=== PATIENT | male | born 1980 | race Caucasian/White ===

== ENCOUNTER 2016-08-20 13:04 | Emergency (ER) | payer MEDICAID ==
[~2016-08-20] VITALS: Ht 162.6 cm; Wt 68.0 kg
--- NOTE | 2016-08-20 13:04 | NUR ---
Patient BIBA and taken to bed 02 via gurney per EMS.
[2016-08-20 13:11] VITALS: BP 132/96
--- NOTE | 2016-08-20 13:12 | NUR ---
BIB EMS, SILK SCREEN PRINTER MACHINE STATES PT. ATE CUPCAKE WITH WRAPPER APPROX. 1 HR AGO, UNABLE TO OBTAIN PULSE OX PT. HAS HX OF MR AND VERY AGITATED; DENIES N/V/D; SKIN IS PINK/WARM/DRY; AAOX4 WITH EVEN AND STEADY GAIT; LUNGS CLEAR BL; HR EVEN AND REGULAR; PT DENIES ANY FEVER, CP, SOB, OR COUGH AT THIS TIME; PATIENT STATES PAIN OF 0/10 AT THIS TIME; VSS; PATIENT POSITIONED FOR COMFORT; HOB ELEVATED; BEDRAILS UP X2; BED DOWN. ER MD MADE AWARE OF PT STATUS.
[2016-08-20 13:24] VITALS: BP 132/96
--- NOTE | 2016-08-20 13:24 | NUR ---
Patient discharged with v/s stable. Written and verbal after care instructions given and explained TO SUSTAINABLE DESIGN CONSULTANT MONICO; MANAGER DATA verbalized understanding. Ambulatory with steady gait. All questions addressed prior to discharge. Advised to follow up with PMD; Patient discharged with v/s stable. Written and verbal after care instructions given and explained. SUSTAINABLE DESIGN CONSULTANT MONICO verbalized understanding. Ambulatory with steady gait. All questions addressed prior to discharge. Advised to follow up with PMD.
== END 2016-08-20 13:50 | disposition home or self-care (01) ==
LOC: MED 13:50
DX: T18.9XXA Foreign body of alimentary tract, part unspecified, initial encounter (principal); X58.XXXA Exposure to other specified factors, initial encounter; Y93.89 Activity, other specified; Y92.89 Other specified places as the place of occurrence of the external cause; Y99.8 Other external cause status

== ENCOUNTER 2023-11-12 14:39 | Inpatient (IN) | payer MEDICAID ==
[~2023-11-12] VITALS: Ht 157.5 cm; Wt 72.6 kg
[2023-11-12 15:34] VITALS: BP 108/85; PULSE 76; RESP 15; TEMP 98.3; O2SAT 96
[2023-11-12 16:37] LABS: BASOPHILS # (AUTO) 0.1 K/uL (0.00-0.22); BASOPHILS % (AUTO) 0.8 % (0.0-2.0); EOSINOPHILS # (AUTO) 0.1 K/uL (0-0.4); EOSINOPHILS % (AUTO) 0.6 % (0.0-4.0); HEMOGLOBIN 14.9 g/dL (12.0-18.0); LYMPHOCYTES # (AUTO) 2.1 K/uL (2.0-11.5); LYMPHOCYTES % (AUTO) 25.6 % (20.5-51.1); MEAN CORPUSCULAR HEMOGLOBIN 32 pg (27-31); MEAN CORPUSCULAR HGB CONC 36 g/dL (33-37); MEAN CORPUSCULAR VOLUME 89.3 fL (80-94); MONOCYTES # (AUTO) 0.7 K/uL (0.8-1.0); MONOCYTES % (AUTO) 9.1 % (1.7-9.3); NEUTROPHILS # (AUTO) 5.2 K/uL (1.8-7.7); NEUTROPHILS % (AUTO) 63.9 % (42.2-75.2); PLATELET COUNT (AUTO) 216 K/uL (140-450); RED CELL DISTRIBUTION WIDTH 13.6 % (11.6-13.7); WHITE BLOOD COUNT (AUTO) 8.1 K/uL (4.8-10.8)
[2023-11-12 16:56] LABS: ALBUMIN 3.5 g/dL (3.4-5.0); ANION GAP 11.5 (8-16); CALCIUM 9.1 mg/dL (8.5-10.1); CARBON DIOXIDE 27.1 mmol/L (21-32); CREATININE 0.7 mg/dL (0.6-1.3); POTASSIUM 4.6 mmol/L (3.5-5.1); TOTAL BILIRUBIN 0.3 mg/dL (0.0-1.0); TOTAL PROTEIN, SERUM 7.5 g/dL (6.4-8.2)
[2023-11-12 17:31] VITALS: O2SAT 96
[2023-11-12] MEDS ORDERED: [UNRECOGNIZED DRUG - CODE] PO (17:31)
[2023-11-12] MEDS ORDERED: CHLO473M PO (17:31)
[2023-11-12] MEDS ORDERED: ASCO500T95 PO (17:31)
[2023-11-12] MEDS ORDERED: DIVA500T1 PO (17:31)
[2023-11-12] MEDS ORDERED: DIVA250T PO (17:31)
[2023-11-12] MEDS ORDERED: [UNRECOGNIZED DRUG - CODE] DT (17:31)
[2023-11-12] MEDS ORDERED: ONDANSETRON 4 MG/2 ML VIAL IVP PRN (19:55)
[2023-11-12] MEDS ORDERED: HYDROcodone/APAP 5/325 MG 1 TAB TAB PO PRN (19:55)
[2023-11-12 20:24] VITALS: BP 138/86; PULSE 87; RESP 17; RESP 19; TEMP 97.2; O2SAT 98; O2SAT 99
[2023-11-12] MEDS: LORazepam 2 MG/ML VIAL IVP PRN (21:49)
[2023-11-12] MEDS: DIVALPROEX 500 MG TABER PO SCH (21:49)
[2023-11-13 04:00] VITALS: BP 98/65; PULSE 77; RESP 18; TEMP 97; O2SAT 98
[2023-11-13 08:00] VITALS: BP 121/79; PULSE 65; RESP 17; TEMP 97.9; O2SAT 100
[2023-11-13] MEDS ORDERED: NON-FORMULARY ITEM (Cholecalciferol (Vitamin D3) (Vitamin D3) 1 TAB) PO SCH (09:00)
[2023-11-13] MEDS ORDERED: FLUORIDE SODIUM PO SCH (09:00)
[2023-11-13] MEDS ORDERED: SODIUM CHLORIDE 3% 4 ML SOL INH SCH (09:00)
[2023-11-13] MEDS: ASCORBIC ACID 500 MG TAB PO SCH (09:00)
[2023-11-13] MEDS ORDERED: NON-FORMULARY ITEM (Divalproex Sodium* (Depakote Er (Extended Release)*) 250 MG) PO SCH (09:00)
[2023-11-13 16:00] VITALS: BP 113/90; PULSE 96; RESP 18; TEMP 98.1; O2SAT 98
[2023-11-13 20:00] VITALS: BP 126/81; PULSE 103; RESP 18; TEMP 96.8; O2SAT 96
[2023-11-13] MEDS: CHLORHEXIDINE GLUCONATE 0.12% 473 ML LIQ MM SCH (21:00)
[2023-11-14 04:00] VITALS: BP 121/92; PULSE 94; RESP 19; TEMP 96.5; O2SAT 96
[2023-11-14] MEDS: LORazepam 2 MG/ML VIAL ONE (07:43)
[2023-11-14 08:00] VITALS: PULSE 99; RESP 18; O2SAT 96; O2SAT 98
[2023-11-14] MEDS: CHOLECALCIFEROL 1,000 IU TAB PO SCH (13:31)
[2023-11-14] MEDS: DIVALPROEX 250 MG TABEC PO SCH (13:31)
[2023-11-14 16:00] VITALS: BP 148/100; PULSE 99; RESP 18; TEMP 97; O2SAT 97
[2023-11-14 20:00] VITALS: RESP 18; O2SAT 99
[2023-11-14 20:23] VITALS: PULSE 99; RESP 18; O2SAT 97
[2023-11-15] VITALS: BP 133/89; PULSE 88; RESP 18; TEMP 97; O2SAT 97
[2023-11-15 08:00] VITALS: BP 158/78; PULSE 63; RESP 19; TEMP 97.8; O2SAT 90; O2SAT 97
[2023-11-15 11:02] LABS: BASOPHILS % (AUTO) 0.7 % (0.0-2.0); EOSINOPHILS % (AUTO) 0.6 % (0.0-4.0); HEMATOCRIT 43.8 % (36-52); HEMOGLOBIN 15.1 g/dL (12.0-18.0); LYMPHOCYTES # (AUTO) 2.3 K/uL (2.0-11.5); LYMPHOCYTES % (AUTO) 33.7 % (20.5-51.1); MEAN CORPUSCULAR HEMOGLOBIN 31 pg (27-31); MEAN CORPUSCULAR HGB CONC 35 g/dL (33-37); MEAN CORPUSCULAR VOLUME 90.2 fL (80-94); MONOCYTES # (AUTO) 0.5 K/uL (0.8-1.0); MONOCYTES % (AUTO) 7.6 % (1.7-9.3); NEUTROPHILS # (AUTO) 3.9 K/uL (1.8-7.7); NEUTROPHILS % (AUTO) 57.4 % (42.2-75.2); PLATELET COUNT (AUTO) 234 K/uL (140-450); RED BLOOD CELL COUNT(AUTO) 4.86 MIL/uL (4.20-6.10); RED CELL DISTRIBUTION WIDTH 13.6 % (11.6-13.7); WHITE BLOOD COUNT (AUTO) 6.8 K/uL (4.8-10.8)
[2023-11-15 11:20] LABS: ALBUMIN 3.7 g/dL (3.4-5.0); ANION GAP 11.1 (8-16); CALCIUM 9.6 mg/dL (8.5-10.1); CARBON DIOXIDE 27.6 mmol/L (21-32); CREATININE 0.9 mg/dL (0.6-1.3); POTASSIUM 3.7 mmol/L (3.5-5.1); TOTAL BILIRUBIN 0.4 mg/dL (0.0-1.0); TOTAL PROTEIN, SERUM 7.8 g/dL (6.4-8.2)
[2023-11-15] MEDS: LORazepam 2 MG/ML VIAL IM/IVP PRN (12:13)
[2023-11-15 16:00] VITALS: BP 131/94; PULSE 86; RESP 18; TEMP 97; O2SAT 95
[2023-11-15 20:00] VITALS: BP 100/60; PULSE 85; RESP 18; TEMP 98.1; O2SAT 97
[2023-11-15 22:00] VITALS: BP 109/61; PULSE 84; RESP 18; TEMP 98; O2SAT 97
[2023-11-15] MEDS: ACETAMINOPHEN 325 MG TAB PO PRN (23:37)
[2023-11-16] VITALS: BP 118/62; PULSE 84; RESP 18; TEMP 98.3; O2SAT 97
[2023-11-16 07:03] LABS: BASOPHILS # (AUTO) 0.1 K/uL (0.00-0.22); BASOPHILS % (AUTO) 0.6 % (0.0-2.0); EOSINOPHILS # (AUTO) 0.1 K/uL (0-0.4); EOSINOPHILS % (AUTO) 1.1 % (0.0-4.0); HEMOGLOBIN 13.8 g/dL (12.0-18.0); LYMPHOCYTES # (AUTO) 1.9 K/uL (2.0-11.5); LYMPHOCYTES % (AUTO) 21.7 % (20.5-51.1); MEAN CORPUSCULAR HEMOGLOBIN 31 pg (27-31); MEAN CORPUSCULAR HGB CONC 35 g/dL (33-37); MONOCYTES # (AUTO) 0.9 K/uL (0.8-1.0); MONOCYTES % (AUTO) 10.7 % (1.7-9.3); NEUTROPHILS # (AUTO) 5.7 K/uL (1.8-7.7); NEUTROPHILS % (AUTO) 65.9 % (42.2-75.2); PLATELET COUNT (AUTO) 221 K/uL (140-450); RED BLOOD CELL COUNT(AUTO) 4.44 MIL/uL (4.20-6.10); RED CELL DISTRIBUTION WIDTH 13.3 % (11.6-13.7); WHITE BLOOD COUNT (AUTO) 8.7 K/uL (4.8-10.8)
[2023-11-16 07:08] LABS: ANION GAP 15.5 (8-16); CALCIUM 8.8 mg/dL (8.5-10.1); CARBON DIOXIDE 23.2 mmol/L (21-32); CREATININE 0.6 mg/dL (0.6-1.3); POTASSIUM 3.7 mmol/L (3.5-5.1)
[2023-11-16 08:00] VITALS: BP 159/66; PULSE 75; RESP 18; TEMP 97.9; O2SAT 97
[2023-11-16 08:55] VITALS: TEMP 97.9
[2023-11-16 15:27] VITALS: BP 100/57; PULSE 82; RESP 18; TEMP 97.3; O2SAT 97
[2023-11-16 15:28] VITALS: BP 100/57; PULSE 82; RESP 18; TEMP 97.3
[2023-11-16] MEDS ORDERED: PYRI-218 PO (16:47)
[2023-11-16] MEDS ORDERED: ISO100 PO (16:47)
[2023-11-16] MEDS: ISONIAZID 100 MG TAB PO SCH (16:56)
[2023-11-16] MEDS: PYRIDOXINE 50 MG TAB PO SCH (16:56)
== END 2023-11-16 17:55 | disposition home or self-care (01) | DRG 137 ==
LOC: MED 14:39 → MTU 19:19 → OBSVTOIN 19:19 → MTU 20:14
PROVIDERS: ADMIT Preventive Medicine Preventive Medicine/Occupational Environmental Medicine; ATTEND Preventive Medicine Preventive Medicine/Occupational Environmental Medicine
DX: A15.9 Respiratory tuberculosis unspecified (principal); G80.9 Cerebral palsy, unspecified; F78.A9 Other genetic related intellectual disability; F84.0 Autistic disorder; G40.909 Epilepsy, unspecified, not intractable, without status epilepticus; Z22.7 Latent tuberculosis; Z79.899 Other long term (current) drug therapy
CPT/HCPCS: 36415; 70250; 71045; 80048; 80053; 83615; 85025; 87081; 99285; J2060